=== PATIENT | female | born 1940 | race Caucasian/White ===

== ENCOUNTER 2022-03-28 13:47 | Emergency (ER) | payer BC ==
[~2022-03-28] VITALS: Ht 152.4 cm; Wt 54.0 kg
[2022-03-28 14:05] VITALS: BP_SYST 194
[2022-03-28 14:47] LABS: BASOPHILS % (AUTO) 0.6 % (0.0-2.0); LYMPHOCYTES # (AUTO) 0.8 K/uL (1.0-5.5); LYMPHOCYTES % (AUTO) 21.2 % (20.5-51.5); MEAN CORPUSCULAR HEMOGLOBIN 32 pg (27-31); MEAN CORPUSCULAR HGB CONC 35 % (32-36); MEAN CORPUSCULAR VOLUME 90 fL (79.0-98.0); MONOCYTES # (AUTO) 0.5 K/uL (0.0-1.0); MONOCYTES % (AUTO) 12.4 % (1.7-9.3); NEUTROPHILS # (AUTO) 2.5 K/uL (1.8-7.7); NEUTROPHILS % (AUTO) 64.8 % (40.0-70.0); PLATELET COUNT (AUTO) 152 K/uL (130-430); RED BLOOD CELL COUNT(AUTO) 2.07 MIL/uL (4.2-6.2); RED CELL DISTRIBUTION WIDTH 19.4 % (9.0-15.0); WHITE BLOOD COUNT (AUTO) 3.9 K/uL (4.8-10.8)
[2022-03-28 14:59] LABS: ANION GAP 9 (5-15); CALCIUM 7.9 mg/dL (8.4-11.0); CHLORIDE 105 mmol/L (98-107); CREATININE 3.53 mg/dL (0.55-1.30); GLUCOSE 110 mg/dL (70-99); HEMOGLOBIN 6.6 g/dL (12.0-16.0); POTASSIUM 4.9 mmol/L (3.5-5.1); SODIUM SERUM 135 mmol/L (136-145); UREA NITROGEN, BLOOD 82 mg/dL (8-21)
--- NOTE | 2022-03-28 14:59 | NUR ---
Patient to ER bed 4 to gown for evaluation. Side rails up. Report given to Madison FULTON.
[2022-03-28 15:00] LABS: HEMATOCRIT 18.6 % (36-48)
--- NOTE | 2022-03-28 15:00 | NUR ---
Pt coming from home recommended by her oncologist to come to the ER due to low H&H levels. Pt is A&Ox4. No s/s of distress. Skin intact. VSS. Has hx of ovarian cancer, DM, HTN, and Arthiritis. Allergic to Penicillins. Bed in lowest posiiton.
--- NOTE | 2022-03-28 15:01 | NUR ---
ER at bedside examining patient.
[2022-03-28 15:07] LABS: ALANINE AMINOTRANSFERASE 19 U/L (12-78); ALBUMIN 3.1 g/dL (3.4-4.8); ASPARTATE AMINOTRANSFERASE 20 U/L (10-37); TOTAL BILIRUBIN 0.2 mg/dL (0.0-1.0)
--- NOTE | 2022-03-28 15:15 | NUR ---
# 22 gauge angiocath placed to right forearm. Use of asceptic technique. Opsite placed over site. Blood return noted. Flushed with 10 cc of normal saline. No evidence of infiltration noted. Patient tolerated well.
--- NOTE | 2022-03-28 15:30 | NUR ---
Blood transfusion consent obtained and blood transfusion packet sent to lab.
--- NOTE | 2022-03-28 15:39 | NUR ---
Personal belonging List completed.
[2022-03-28] MEDS ORDERED: NEU300 PO (15:50)
[2022-03-28] MEDS ORDERED: LIP40 PO (15:50)
[2022-03-28] MEDS ORDERED: AMLO5TAB4 PO (15:50)
[2022-03-28] MEDS ORDERED: HYDR-4039 PO (15:50)
[2022-03-28] MEDS ORDERED: LOSA100T3 PO (15:50)
[2022-03-28] MEDS ORDERED: FURO-150 PO (15:50)
[2022-03-28] MEDS ORDERED: CARV25TA55 PO (15:50)
--- NOTE | 2022-03-28 15:50 | NUR ---
Medication reconciliation completed with information provided by patient. Any prior medication reconciliation on file was reviewed and corrected.
--- NOTE | 2022-03-28 17:13 | NUR ---
Started the first unit of packed red blood cells. No reaction noted. No s/s of distress. Pt states she has no c/o. First 15 minutes at 75ml.hr. VSS. After 15 minutes now running at 175ml/hr. Bed in lowest position. IV intact no infiltration noted.
--- NOTE | 2022-03-28 18:00 | NUR ---
BP at 198/78. Dr. Hraris made aware and he stated he will put orders for her BP.
[2022-03-28] MEDS ORDERED: ENALAPRILAT DIHYDRATE 1.25 MG/ML VIAL IVP ONE (18:15)
[2022-03-28] MEDS ORDERED: hydrALAZINE HCL 20 MG/ML VIAL IVP ONE ×2 (18:15→21:45)
--- NOTE | 2022-03-28 19:03 | NUR ---
Pt just completed 1 unit of PACKED RED BLOOD CELLS. No s/s of distress. VSS.
--- NOTE | 2022-03-28 20:05 | NUR ---
# 20 gauge angiocath placed to . Use of asceptic technique. Opsite placed over site. Blood return noted. Blood for lab drawn from site. Flushed with 10 cc of normal saline. No evidence of infiltration noted. Patient tolerated well.
--- NOTE | 2022-03-28 20:05 | NUR ---
Previous IV infiltrated, new 20g placed to left AC. Blood transfusion started per protocol. No signs of distress or changes in patient condition. Water and warm blankets provided to patient.
--- NOTE | 2022-03-28 20:31 | NUR ---
Blood transfusion continues at this time. No signs/symptoms of transfusion reaction at this time. Respirations even and unlabored. Normal skin color for ethnicity. Pt denies body aches, chills,
--- NOTE | 2022-03-28 21:42 | NUR ---
PRBC unit #2 completed at this time. No signs or symptoms of transfusion reaction. Normal skin color for ethnicity. Respirations even and unlabored. BP 199/67. made aware.
[2022-03-28] MEDS ORDERED: LABETALOL HCL 20 MG/4 ML CARTRIDGE IVP ONE (21:45)
--- NOTE | 2022-03-28 22:05 | NUR ---
Pt states she would like to AMA. MD made aware and spoke to patient regarding risks of leaving AMA. Pt informed of risks of uncontrolled severe HTN. Pt verbalizes understanding of risks of leaving AMA.
--- NOTE | 2022-03-28 22:11 | NUR ---
Admit bed requested Patient will be admitted to care of . Admitted to unit. Diagnosis ANEMIA/OVARIAN CA Inpatient (Yes or No) YES Observation (Yes or No) NO Orientation concerns or request close to nursing station (Yes or No) YES Covid Status PEND On vent or bipap NO Isolation requirements NO Needs a sitter NO From Home (Yes or if No enter name of facility) YES Requires Dialysis (Yes or No) NO Med Rec Completed (Yes of No) NO
--- NOTE | 2022-03-28 22:41 | NUR ---
Patient given written and verbal AMA instructions and verbalizes understanding. ER MD discussed with patient the results and treatment provided. ID arm band removed. IV catheter removed intact and dressing applied, no active bleeding. Opportunity for questions provided and answered.
[2022-03-28 22:45] VITALS: BP_SYST 116
== END 2022-03-28 22:41 | disposition left against medical advice (07) ==
LOC: SED 13:47
DX: D64.9 Anemia, unspecified (principal); I12.0 Hypertensive chronic kidney disease with stage 5 chronic kidney disease or end stage renal disease; N18.9 Chronic kidney disease, unspecified; N17.9 Acute kidney failure, unspecified; Z85.43 Personal history of malignant neoplasm of ovary; Z20.822 Contact with and (suspected) exposure to COVID-19
CPT/HCPCS: 36415; 36430; 80053; 85025; 86886; 86900; 86901; 86920; 87426; 96374; 96375; 96376; 99284; J0360; P9021